=== PATIENT | female | born 1965 | race Caucasian/White ===

== ENCOUNTER 2017-03-24 02:34 | Emergency (ER) | payer SELFPAY ==
[~2017-03-24 02:34] MED LIST: CITA40TA PO
[2017-03-24 03:04] VITALS: BP 156/97; PULSE 83; RESP 16; O2SAT 99
--- NOTE | 2017-03-24 03:39 | ED.REPORT ---
HPI-Head Prob / Injury Date of Service Mar 24, 2017 ED Provider: Rakan Dunn MD Pt is a 52 year old female with a hx of HTN presenting to the ED complaining of pain and abrasion to her head after falling on stairs and hitting the back of her head on a brick. She denies any LOC or any other symptoms at this time. Pt reports drinking EtOH tonight. Nursing Notes Stated Complaint: HEAD INJURY/ LACERATION Chief Complaint: Head, Face, Neck Trauma Nursing Notes Reviewed: Yes Allergies: Coded Allergies: Penicillins (Verified Allergy, Severe, 06/29/09) rash and nausea TAPE (Verified Allergy, Intermediate, Rash, 09/23/08) Redness on Skin Scheduled Citalopram-Expunged Drug, Do Not Renew! (Citalopram-Expunged Drug, Do Not Renew! ) 40 Mg Tablet 40 MG PO HS General Time Seen by Provider: 04:15 Chief Complaint Laceration Hx Obtained From: Patient Arrived By: Walk-in Onset Occurred: Just prior to arrival Symptom Duration: Since onset Caused by: Fall down stairs Quality: Painful Severity: Current: Mild Severity: Maximum: Moderate Recent Healthcare: No recent doctor visit, No recent hospitalization Similar Sx Previous: No Past Medical History Past Medical History Reports: Hypertension Reports: Depression Past Surgical History Reports: Hysterectomy Smoking History Unknown if Ever Smoker Ambulatory Status Independent Review of Systems Constitutional: Denies: Weakness - generalized GI: Denies: Vomiting Skin: Reports Rash Neurologic: Reports: Headache, Denies: Change LOC, Numbness Complete sys rev & neg: except as marked. Physical Exam Initial Vital Signs Vital Signs (First) Date Time Temp Pulse Resp B/P Pulse Ox O2 Delivery O2 Flow Rate FiO2 03/24/17 03:04 36.4 83 16 156/97 99 Room Air Initial VS: Reviewed, Vital signs abnormal Respiratory: No respiratory distress Abdomen / GI: No distention Extremities: Vascular intact, Neuro intact, No swelling, No tenderness Psychiatric: Mood/affect normal, Behavior normal, Normal thought content General/Constitutional: Awake, Alert, No acute distress, Well appearing Head / Eyes: Normocephalic, PERRL, EOMI ENT: Atraumatic, Airway patent, Mucous membranes moist, Pharynx NL Neck: Atraumatic, Supple, No meningismus, Full range of motion Neurologic: Oriented X3, Speech NL, No motor deficits, No sensory deficits, CN II - XII intact, Cerebellar NL Skin: Warm, Dry 2 lacerations 3.5 and 1.5 cm on the back of head Interpretation & Diagnostics CT Head Interpretation CONCLUSION: No acute intracranial hemorrhage or calvarial fracture. Left posterior scalp injury. Left maxillary sinus disease. This report was transmitted to the emergency room at 03/24/2017 - 3:55:13 AM PDT. Interpretation / Wet Read by: Interpret - Radiologist Procedures Laceration Management Laceration Management: 2 lacerations 3.5 and 1.5 cm. Time: 05:05 Procedure Performed by: ED physician Consent / Setup / Site Prep: Consent from patient, Time-out performed, Hand hygiene observed, Stand sterile technique Local Anesthesia: Lidocaine w epi 1% Repair Skin: [place] # Sutures - Skin: 6 Post-Procedure / Complications: Antibiotic oint applied, Dressing applied, No complications, Condition improved, Tolerated procedure well, Patient stable Re-Eval/Medical Decision Med Decision/Clinical Course 52-year-old female with ground-level fall. CT scan is negative. Scalp laceration was repaired with franky. Re-Evaluation/Progress : Time of Eval: 05:04 Patient Status: Condition improved Re-Evaluation/Progress Note: Performed laceration management. Pt tolerated procedure well. Discussed plan for discharge. Counseled Regarding: Diagnosis, Lab results, Need for follow-up, When/why to return to ED Discharge & Departure Primary Impression: Scalp laceration Encounter type: initial encounter Qualified Code: S01.01XA - Laceration without foreign body of scalp, initial encounter Additional Impressions: Head injury Encounter type: initial encounter Qualified Code: S09.90XA - Unspecified injury of head, initial encounter Alcohol intoxication Complication of substance-induced condition: uncomplicated Qualified Code: F10.120 - Alcohol abuse with intoxication, uncomplicated Disposition: Home All VS Reviewed: Yes Condition: Improved Patient Instructions: Head Injury (ED), Staple Care (ED) Additional Instructions: Franky out in 10 days. Okay to shampoo. Follow-up [facility] if you develop any of the complications listed on the head injury sheet. Referrals: Galindo Camp MD (PCP) Scribe Attestation Portions of this note were transcribed by Cassy Culver. I, Dr. Dunn personally performed the history, physical exam and medical decision-making; I reviewed and confirmed the accuracy of the information in the transcribed note. Signed by: Angeli Lee, 03/24/2017 at 0529. copies to: Galindo Camp MD, Rakan Logan MD Mar 24, 2017 03:39 CASSY CULVER Mar 24, 2017 04:15
--- NOTE | 2017-03-24 08:32 | DRSVH ---
PROCEDURE: CT BRAIN WITHOUT CONTRAST ([id number]) INDICATIONS: intoxicated, fall TECHNIQUE: Noncontrast 4.5 mm thick angled axial sections acquired from the foramen magnum to the vertex, with c oronal reformats. COMPARISON: None. FINDINGS: Image quality: Excellent. CSF spaces: Basal cisterns are patent. No extra-axial fluid collections. Ventricles are normal in size and shape. Brain: No midline shift. No intracranial masses or hemorrhage. Wade-white matter interface is norm al. Skull and face: Calvarium and visualized facial bones are intact, without suspicious lesions. Left p arietal scalp laceration and contusion with subcutaneous air. Sinuses: Near-complete opacification of the left maxillary sinus. The mastoids are clear. IMPRESSION: 1. No acute intracranial abnormalities. 2. Left parietal scalp injury. 3. Left maxillary sinusitis. No significant discrepancy with the shift superintendent radiology preliminary report. Dictated by: Livan William M.D. on 03/24/2017 at 8:27 Approved by: Livan William M.D. on 03/24/2017 at 8:30
== END 2017-03-24 05:39 | disposition home or self-care (01) ==
LOC: SED 02:34
DX: S01.01XA Laceration without foreign body of scalp, initial encounter (principal); F10.120 Alcohol abuse with intoxication, uncomplicated; W10.9XXA Fall (on) (from) unspecified stairs and steps, initial encounter; Y93.9 Activity, unspecified; Y92.9 Unspecified place or not applicable; Y99.9 Unspecified external cause status; I10 Essential (primary) hypertension; Z90.710 Acquired absence of both cervix and uterus; Z88.0 Allergy status to penicillin

== ENCOUNTER 2017-04-03 10:55 | Emergency (ER) | payer MEDICAID ==
[2017-04-03 11:18] VITALS: BP 159/91; PULSE 78; RESP 16; O2SAT 99
== END 2017-04-03 11:30 | disposition home or self-care (01) ==
LOC: SED 10:55
DX: Z48.02 Encounter for removal of sutures (principal)